=== PATIENT | male | born 2000 | race Two or more races ===

== ENCOUNTER 2022-09-28 09:16 | Emergency (ER) | payer MEDICAID ==
[~2022-09-28] VITALS: Ht 177.8 cm; Wt 80.0 kg
[2022-09-28 09:16] VITALS: BP 116/74
== END 2022-09-28 10:37 | disposition left against medical advice (07) ==
LOC: ER 09:16 → EDBD 09:16 → ER 10:37
DX: Z04.1 Encounter for examination and observation following transport accident (principal); Z53.21 Procedure and treatment not carried out due to patient leaving prior to being seen by health care provider